=== PATIENT | male | born 1995 | race Caucasian/White ===

== ENCOUNTER 2021-12-27 02:40 | Emergency (ER) | payer OTHER ==
[~2021-12-27] VITALS: Ht 175.3 cm; Wt 103.9 kg
[2021-12-27 02:45] VITALS: BP 143/100
--- NOTE | 2021-12-27 02:45 | NUR ---
to bed ambulatory
--- NOTE | 2021-12-27 03:03 | NUR ---
RECEIVED IN BED 9 WITH C/O SOB AND SORE THROAT FOR 2 DAYS. ATTACHED TO MONITOR, O2 SAT = 98%
[2021-12-27] MEDS ORDERED: METH4TAB1 PO (03:38)
[2021-12-27 03:50] VITALS: BP 143/100
--- NOTE | 2021-12-27 03:50 | NUR ---
Patient discharged with v/s stable. Written and verbal after care instructions given and explained. Patient verbalized understanding. Ambulatory with steady gait. All questions addressed prior to discharge. Advised to follow up with PMD.
== END 2021-12-27 03:50 | disposition home or self-care (01) ==
LOC: MED 02:40
DX: K12.2 Cellulitis and abscess of mouth (principal)
CPT/HCPCS: 99283

== ENCOUNTER 2022-05-27 04:37 | Emergency (ER) | payer OTHER ==
[~2022-05-27] VITALS: Ht 175.3 cm; Wt 105.2 kg
[~2022-05-27 04:37] MED LIST: METH4TAB1 PO
[2022-05-27 04:40] VITALS: BP 141/87
--- NOTE | 2022-05-27 04:40 | NUR ---
SEEN AND EXAMINED BY KAREN
[2022-05-27] MEDS ORDERED: NAPR-54 PO (04:46)
[2022-05-27] MEDS ORDERED: AMOX1TAB8 PO (04:46)
[2022-05-27 04:49] VITALS: BP 141/87
--- NOTE | 2022-05-27 04:49 | NUR ---
Patient discharged with v/s stable. Written and verbal after care instructions given and explained. Patient alert, oriented and verbalized understanding of instructions. Ambulatory with steady gait. All questions addressed prior to discharge. ID band removed. Patient advised to follow up with PMD. Rx of AMOXICILLIN/POTASSIUM CLAV, NAPROSYN given. Patient educated on indication of medication including possible reaction and side effects. Opportunity to ask questions provided and answered.
== END 2022-05-27 04:49 | disposition home or self-care (01) ==
LOC: MED 04:37
DX: J01.10 Acute frontal sinusitis, unspecified (principal); J01.00 Acute maxillary sinusitis, unspecified; Z79.899 Other long term (current) drug therapy
CPT/HCPCS: 99283

== ENCOUNTER 2022-06-30 22:30 | Emergency (ER) | payer OTHER ==
[~2022-06-30] VITALS: Ht 175.3 cm; Wt 105.2 kg
[~2022-06-30 22:30] MED LIST changes: +AMOX1TAB8 PO; +NAPR-54 PO
[2022-06-30 22:37] VITALS: BP 153/87
[2022-07-01] MEDS ORDERED: TOMOMETER 1 DEV DEV MC ONE (00:22)
--- NOTE | 2022-07-01 00:36 | NUR ---
Dr. Mahan examining patient.
[2022-07-01] MEDS ORDERED: FLONAS NS (00:42)
[2022-07-01 00:48] VITALS: BP 142/87
--- NOTE | 2022-07-01 00:48 | NUR ---
Patient discharged with v/s stable. Written and verbal after care instructions given and explained by Dr. Mahan. Patient alert, oriented and verbalized understanding of instructions. Ambulatory with steady gait. All questions addressed prior to discharge. ID band removed. Patient advised to follow up with PMD. Rx of Flonase given. Patient educated on indication of medication including possible reaction and side effects. Opportunity to ask questions provided and answered.
== END 2022-07-01 00:48 | disposition home or self-care (01) ==
LOC: MED 22:30
DX: H68.003 Unspecified Eustachian salpingitis, bilateral (principal); I10 Essential (primary) hypertension; Z79.899 Other long term (current) drug therapy; Z79.1 Long term (current) use of non-steroidal anti-inflammatories (NSAID); Z79.2 Long term (current) use of antibiotics
CPT/HCPCS: 99283

== ENCOUNTER 2022-08-29 21:23 | Emergency (ER) | payer OTHER ==
[~2022-08-29] VITALS: Ht 175.3 cm; Wt 104.8 kg
[~2022-08-29 21:23] MED LIST changes: +FLONAS NS
[2022-08-29 21:31] VITALS: BP 132/96
--- NOTE | 2022-08-29 23:25 | NUR ---
Dr. Winter examining patient.
[2022-08-30] MEDS ORDERED: IBUP-2213 PO (00:31)
[2022-08-30 00:45] VITALS: BP 132/96
== END 2022-08-30 00:54 | disposition home or self-care (01) ==
LOC: MED 21:23
DX: R07.89 Other chest pain (principal); I10 Essential (primary) hypertension; Z79.1 Long term (current) use of non-steroidal anti-inflammatories (NSAID); Z79.899 Other long term (current) drug therapy; Z79.2 Long term (current) use of antibiotics
CPT/HCPCS: 93005; 99283